=== PATIENT | male | born 1985 | race Asian ===

== ENCOUNTER 2018-10-28 00:35 | Emergency (ER) | payer BC ==
[~2018-10-28] VITALS: Ht 167.6 cm; Wt 71.0 kg
[2018-10-28] MEDS ORDERED: ONDANSETRON HCL 4MG/2ML INJ IV STA (01:21)
[2018-10-28] MEDS ORDERED: SODIUM CHLORIDE 0.9% 1,000 ML IV ONE ×2 (01:21→02:15)
[2018-10-28 01:50] LABS: BASOPHILS % 0.5 % (0.0-2.0); EOSINOPHILS % 2.6 % (0.0-5.0); HEMATOCRIT. 42.6 % (42.0-52.0); HEMOGLOBIN. 13.9 g/dL (14.0-18.0); LYMPHOCYTES % 30.2 % (20.0-50.0); MEAN CORPUSCULAR HEMOGLOBIN 25.9 pg (28.0-32.0); MEAN CORPUSCULAR VOLUME 79.3 fL (80.0-94.0); MEAN PLATELET VOLUME 7.6 fl (7.4-10.4); MONOCYTES % 5.6 % (2.0-8.0); NEUTROPHILS % 61.1 % (40.0-76.0); PLATELET 218 x1000/uL (130-400); RED BLOOD CELL COUNT 5.38 mill/uL (4.7-6.1); RED CELL DISTRIBUTION WIDTH 13.7 % (11.6-14.6)
[2018-10-28 01:56] LABS: CHLORIDE 105 mEq/L (98-107)
[2018-10-28] MEDS ORDERED: MANNITOL 12.5G (25%) VIAL 50ML IV ONE (02:15)
[2018-10-28] MEDS ORDERED: MORPHINE SULFATE 4 MG/ML CPJ (NOT FOR IM USE) IV ONE (02:15)
[2018-10-28 03:48] VITALS: BP 119/59
== END 2018-10-28 03:48 | disposition short-term general hospital (02) ==
LOC: ER 01:18
DX: I62.9 Nontraumatic intracranial hemorrhage, unspecified (principal); R55 Syncope and collapse; J45.909 Unspecified asthma, uncomplicated
CPT/HCPCS: 36415; 70450; 71045; 80053; 82962; 83880; 84484; 85025; 93005; 96361; 96374; 96375; 99291; J2150; J2270; J2405; J7030